=== PATIENT | female | born 1990 | race Caucasian/White ===

== ENCOUNTER 2019-03-14 09:26 | Emergency (ER) | payer OTHER ==
[2019-03-14 09:41] VITALS: PULSE 66; TEMP 98.1; BMI 19.2
[2019-03-14 10:50] VITALS: BP 94/57
--- NOTE | 2019-03-14 10:50 | PDOC ---
Suture Removal/Wound Check HPI - History of Present Illness Chief Complaint: Suture/Staple Removal (other) Stated Complaint: SUTURE REMOVAL Time Seen by Provider: 03/14/19 09:53 History Source: Yes: Patient Treated at: Other ED ([place]) Past History - Past Medical History Allergies/Adverse Reactions: Allergies Allergy/AdvReac Type Severity Reaction Status Date / Time No Known Allergies Allergy Verified 03/14/19 09:30 Home Medications: Ambulatory Orders NK [No Known Home Medication] 03/14/19 - Suicide/Smoking/Psychosocial Hx Smoking History: Never smoked Hx Alcohol Use: No Drug/Substance Use Hx: No Suture Removal/Wound Check PE - Physical Exam Laceration/Wound Check Symptoms: denies: Pain, Fever, Chills, Redness Location of Laceration/Wound: right: Abdomen (3 sx incisions, 2 w/ running sutures, umbilicus w/ 2 interrupted) *Review of Systems - Review of Systems Constitutional: No: Chills, Fever ABD/GI: No: Nausea, Vomiting, Abdominal cramping : No: Dysuria *Physical Exam - Vital Signs Last Vital Signs Temp Pulse Resp BP Pulse Ox 98.1 F 66 16 98/59 L 99 03/14/19 09:30 03/14/19 09:30 03/14/19 09:30 03/14/19 09:30 03/14/19 09:30 Medical Decision Making - Medical Decision Making 03/14/19 10:48 28-year-old female s/p bilateral ovarian cystectomy (?torsion) in [place] 1 week ago while on vacation, states she called her PMD this week to schedule suture removal but was told to come to ED instead. Patient denies any abdominal pain, nausea, vomiting, fever, chills or dysuria. Having normal BM. Patient has multiple surgical incisions with running sutures at 2 sites and interrupted sutures at the 3rd site. Sites appear well with no evidence of infection at this time. Sutures were removed without complications. We dc to continue following up with her PMD. Of note BP low in ED. Per pt, baseline for her. No dizziness or weakness. No need for ED intervention at this time *DC/Admit/Observation/Transfer Diagnosis at time of Disposition: Visit for suture removal - Discharge Dispostion Disposition: HOME Condition at time of disposition: Good - Referrals - Patient Instructions Printed Discharge Instructions: DI for Suture Removal Additional Instructions: Continue to follow-up with your PMD - Post Discharge Activity
== END 2019-03-14 10:54 | disposition home or self-care (01) ==
LOC: JERFT 09:26 → JER 09:26 → JERFT 10:54
DX: Z48.817 Encounter for surgical aftercare following surgery on the skin and subcutaneous tissue (principal); Z48.02 Encounter for removal of sutures
CPT/HCPCS: 99281-25

== ENCOUNTER 2023-02-04 10:23 | Emergency (ER) | payer OTHER ==
[2023-02-04 10:37] VITALS: BP 131/58; RESP 16; TEMP 97.9; BMI 23.3
[2023-02-04 11:41] LABS: EPI CELLS 24 /uL (0-25.1); HCG,QUALITATIVE URINE Negative; HYALINE CASTS 0 /uL (0-3.1); URINE APPEARANCE CLEAR; URINE BACTERIA 566 /uL (0-1359); URINE BILIRUBIN NEGATIVE (NEGATIVE); URINE COLOR YELLOW; URINE GLUCOSE (UA) NEGATIVE (NEGATIVE); URINE KETONE NEGATIVE (NEGATIVE); URINE LEUK ESTERASE TRACE (NEGATIVE); URINE NITRITE NEGATIVE (NEGATIVE); URINE PROTEIN NEGATIVE (NEGATIVE); URINE RBC 13 /uL (0-23.9); URINE UROBILINOGEN 0.2 mg/dL (0.2-1.0); URINE WBC 28 /uL (0-25.8)
[2023-02-04] MEDS ORDERED: POLYETHYLENE GLYCOL (HEALTHYLAX) 3350 17 GM PACKET PO SCH (12:15)
[2023-02-04] MEDS ORDERED: POLYETHYLENE GLYCOL (HEALTHYLAX) 3350 17 GM PACKET PO ONE (12:15)
[2023-02-04] MEDS ORDERED: POLYETHYLENE GLYCOL (HEALTHYLAX) 3350 17 GM PACKET ONE (12:21)
[2023-02-04 12:26] LABS: BASO % 0.6 % (0-2.0); EOS % 2.5 % (0-4.5); HEMATOCRIT 36.3 % (32.4-45.2); HEMOGLOBIN 12.4 GM/dL (10.7-15.3); LYMPH % 49.3 % (8-40); MCH 31.6 pg (25.7-33.7); MCHC 34.3 g/dl (32.0-36.0); MEAN CELL VOLUME 92.1 fl (80-96); MEAN PLT VOLUME 9.7 fl (7.5-11.1); MONO % 7.2 % (3.8-10.2); NEUT % 40.4 % (42.8-82.8); PLATELET COUNT 287 10^3/uL (134-434); RBC 3.94 M/mm3 (3.60-5.2); RDW 13.7 % (11.6-15.6); WHITE BLOOD COUNT 7.1 K/mm3 (4.0-10.0)
[2023-02-04 12:52] LABS: BLOOD UREA NITROGEN 17.4 mg/dL (7-18)
[2023-02-04 12:55] LABS: CREATININE 0.7 mg/dL (0.55-1.3)
[2023-02-04 12:57] LABS: BILIRUBIN,TOTAL 0.4 mg/dL (0.2-1)
[2023-02-04] MEDS ORDERED: CEPHALEXIN MONOHYDRATE 500 MG CAPSULE (UD) PO ONE (15:38)
[2023-02-04] MEDS ORDERED: CEPHALEXIN MONOHYDRATE 500 MG CAPSULE (UD) ONE (15:43)
[2023-02-04] MEDS ORDERED: SODIUM PHOSPHATE/NA BIPHOS 133 ML ENEMA PR ONE (16:16)
[2023-02-04 18:19] VITALS: PULSE 85
== END 2023-02-04 18:17 | disposition home or self-care (01) ==
LOC: JER 10:23
DX: N39.0 Urinary tract infection, site not specified (principal); K59.00 Constipation, unspecified
CPT/HCPCS: 36415; 74177-TC; 80053; 81003; 84443; 84703; 85025; 99285-25